=== PATIENT | female | born 1950 | race Caucasian/White ===

== ENCOUNTER 2018-08-21 19:22 | Inpatient (IN) | payer OTHER ==
[~2018-08-21] VITALS: Ht 162.6 cm; Wt 81.9 kg
--- NOTE | ~2018-08-21 | P ---
[facility] [place] [address] PROCEDURE REPORT Name: BERTHA LAURENT Room #: 354-P [facility] IN M.R.#: [id number] Admission: 08/21/18 ������������������ Attend Phys: Daniel Saldaña MD Discharge: 08/22/18 ������������������ Date of : 54 Report #: [id number] THIS REPORT FOR: //name// CC: Abhijit Saldaña MD DATE OF SERVICE: 08/22/2018 PROCEDURE: EGD with esophageal dilatation and biopsies. Patient of Dr. Saldaña. INDICATION FOR PROCEDURE: This patient has history of dysphagia with previous esophageal dilatation, the last one being 5 years ago in [place]. She has had progressively worsening dysphagia over the last several months and is here for esophageal dilatation. She has had a history of gastroesophageal reflux symptoms in the past, but denies them now. She says that she takes Tums or antacids orally to control her gastrointestinal reflux symptoms. She is here for esophageal dilatation. Informed consent for this procedure was obtained prior to the administration of any medication. The risks of the procedure, which include bleeding, perforation, infection, complications of sedation and the possibility I could miss something have been explained to the patient and she has indicated her consent by signing. Anesthesia kindly provided deep sedation for this procedure. DESCRIPTION OF PROCEDURE: The Olympus upper videoscope was introduced through the upper esophageal sphincter and advanced to approximately 20 cm from the incisors and the proximal esophagus where a tight stricture was noted. I was unable to pass the scope through the stricture, so I advanced a guidewire through the stricture and we pulled the scope out over the guidewire with the guidewire kept in place and then, I passed progressively larger Savary dilators over the guidewire including a #33, 36, 38.8, 42, 45, 48 and 51 Tajik dilators and then, I removed the dilators and the guidewire and reintroduced the Olympus upper videoscope through the upper esophageal sphincter. I was able to advance the scope all the way down to the third portion of the duodenum. Findings are noted on withdrawal of the scope. The third portion of the duodenum that I visualized, appeared normal. The second portion of the duodenum is normal. There are some mild erosions in the duodenal bulb. Pylorus, normal mucosa. Antrum, normal mucosa. Biopsies are obtained x 2 from the antrum and body of the stomach for Helicobacter pylori evaluation primarily, but also for histopathology. Body, normal mucosa. Cardia and fundus, the cardia and the fundus of the stomach are covered with blood and it is difficult to make a good call about the integrity of the mucosa, but there are no gross lesions in the [address] [address] PROCEDURE REPORT Name: BERTHA LAURENT Room #: 354-P DIS IN M.R.#: [id number] Admission: 08/21/18 ������������������ Attend Phys: Daniel Saldaña MD Discharge: 08/22/18 ������������������ Date of : 54 Report #: [id number] proximal stomach. The scope was withdrawn into the esophagus. The Z-line is difficult to find because of the blood that is in the esophagus at this time. It is possible she may have a second stricture at the bottom of her esophagus that was dilated during this test. It is difficult to say, but the distal esophageal mucosa does appear to be ulcerated, the extent of which I cannot determine entirely because of the blood soaked mucosa that extends senior living up the esophagus and into the more proximal esophagus as well. In the proximal esophagus, I see that the previously noted stricture has been completely obliterated and the esophagus was wide open at that point. A good hemostasis was noted now after the dilatation has had occurred. The scope was withdrawn. The patient was recovered in the recovery room. She tolerated the procedure well. IMPRESSION: 1. Proximal esophageal stricture dilated as above. 2. Possible distal esophageal stricture also dilated. 3. Ulcerated distal esophagus. 4. Duodenitis of the bulb, mild. 5. Biopsies taken for Helicobacter pylori evaluation from the antrum and body of the stomach. RECOMMENDATIONS: To await the biopsy results. The patient needs to take more than antacids for her acid reflux. She needs to be on proton pump inhibitors. She is at high risk of getting Maddox's esophagus with severe ulcerated esophagus that I saw today. I will ask her to take Protonix 40 mg p.o. b.i.d. She will need to have another EGD performed to evaluate esophageal healing in about 3 months and to be certain that she does not have Maddox's ectopic mucosa or esophageal carcinoma. Thank you very much once again for allowing me to participate in her care, Dr. Saldaña. ��������������������������������������������� ���������������������������������������� By: ��������������������������������������������� [id number] Zohra Montes DO /nt
[~2018-08-21 19:22] MED LIST: DIOVAN 80 MG TA80 M1 PO; METFORMIN HCL500 MG PO; PERCOCET 5-3251 EACH PO
[2018-08-21 19:30] VITALS: BP 131/96
[2018-08-21 20:42] LABS: ABSOLUTE NEUTROPHILS 7.9 thou/uL (1.4-8.2); BASOPHILS 0.7 % (0.0-2.0); EOSINOPHILS 1.9 % (0.0-3.0); HEMATOCRIT 35.8 % (37.0-47.0); HEMOGLOBIN 11.6 gm/dL (12.0-15.0); LYMPHOCYTES 22.4 % (24.0-44.0); MCH 26.9 pg (26.0-34.0); MCHC 32.4 g/dL (28.0-37.0); MONOCYTES 6.5 % (1.0-8.0); PLATELET COUNT 262 thou/uL (150-400); POLYS 68.5 % (36.0-66.0); RBC 4.31 mil/uL (4.20-5.00); RDW 15.6 % (10.5-14.5); WBC 11.5 thou/uL (4.0-11.0)
[2018-08-21 20:51] LABS: AMP/METHAMP Negative (Negative); ANION GAP 10 mmol/L (7-16); BARBITURATES Negative (Negative); BENZODIAZEPINES Negative (Negative); BUN 17 mg/dL (7-18); CALCIUM 11.3 mg/dL (8.5-10.1); CHLORIDE 104 mmol/L (98-107); CO2 27 mmol/L (21-32); COCAINE Negative (Negative); GLUCOSE 109 mg/dL (74-106); METHADONE Negative (Negative); OPIATES Negative (Negative); PCP Negative (Negative); POTASSIUM 4.1 mmol/L (3.5-5.1); SODIUM 141 mmol/L (136-145)
[2018-08-21 20:53] LABS: URINE BILIRUBIN NEGATIVE (Negative); URINE BLOOD 1+ (Negative); URINE CLARITY CLEAR; URINE COLOR YELLOW; URINE GLUCOSE-RANDOM* NEGATIVE (Negative); URINE KETONES NEGATIVE (Negative); URINE NITRITE-REFLEX NEGATIVE (Negative); URINE PROTEIN (DIPSTICK) NEGATIVE (Negative); URINE SPECIFIC GRAVITY 1.025 (1.005-1.035); URINE UROBILINOGEN 0.2 E.U./dl (0.2-1.0)
[2018-08-21 20:59] LABS: URINE LEUKOCYTES-REFLEX 1+ (Negative)
[2018-08-21 21:02] LABS: ALBUMIN 3.6 g/dL (3.4-5.0); BACTERIA-REFLEX 1-9 Few /HPF (None Seen); CASTS None Seen /LPF (None Seen); CRYSTALS None Seen /LPF (None Seen); LIPASE 159 U/L (73-393); MAGNESIUM 2.1 mg/dL (1.8-2.4); SGOT 13 U/L (15-37); SGPT 18 U/L (30-65); SQUAMOUS 0-3 Few /LPF (0-3); TOTAL BILIRUBIN 0.3 mg/dL (<0.1-1.0); TOTAL PROTEIN 7.6 g/dL (6.4-8.2); TROPONIN-I <0.06 ng/mL (<0.06); URINE RBC 3-10 Few /HPF (0-2)
[2018-08-21] MEDS ORDERED: ATORVASTATIN CA40 MG PO (22:48)
[2018-08-21] MEDS ORDERED: CARVEDILOL12.5 MG PO (22:59)
[2018-08-21 23:06] VITALS: BP 120/39
[2018-08-21 23:24] VITALS: BP 144/57
[2018-08-21] MEDS ORDERED: ASPIR 8181 MG PO (23:51)
[2018-08-21] MEDS ORDERED: HYDROCHLOROTH12.5 M1 PO (23:52)
[2018-08-22] VITALS (8 sets, daily range): BP systolic 106–148; BP diastolic 40–50
[2018-08-22 03:27] LABS: TROPONIN-I <0.06 ng/mL (<0.06)
[2018-08-22 03:38] LABS: CHOLESTEROL 147 mg/dL (<200); HDL CHOLESTEROL 44 mg/dL (>40); LDL CHOLESTEROL 89 mg/dL (<100); TC:HDL 3.3 Ratio (Not establshd); TRIGLYCERIDE 74 mg/dL (<150); VLDL 15 mg/dL (<40)
[2018-08-22 03:41] LABS: SERUM ASSESSMENT Clear
--- NOTE | 2018-08-22 03:54 | NUR ---
RECEIVED REPORT FROM ER NURSE. PT ARRIVED TO ROOM 354 AROUND 2316. ADMISSION HX AND ASSESSMENT COMPLETED CHARTED. C/O INTERMITTENT EPIGASTRIC PAIN, WHICH RADIATES TO HER BACK. PT DESCRIBED IT A CRAMPING FEELING THAT COMES AND GOES. 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 PRN FENTANYL GIVEN FOR PAIN. DENIES ANY N/V. UP AD PURA AROUND THE ROOM WITH STEADY GAIT. VSS. PROGRESSING SLOWLY TOWARD POC GOALS. WILL CONTINUE TO MONITOR FURTHER.
--- NOTE | 2018-08-22 08:00 | EKG ---
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 : 1950 Requested By: Herbert Briceno Order Number: [id number] MD: Scotty Suarez Measurements Intervals Mercer Rate: 120 P: 0 ID: 56 QRS: 44 QRSD: 139 T: -39 QT: 360 QTc: 509 Interpretive Statements Sinus tachycardia frequent and consecutive supraventricular complexes Right bundle branch block Nonspecific ST segment abnormality No previous ECG available for comparison Electronically Signed On 08-22-2018 8:00:31 CDT by Scotty Suarez [email or web address] ��������������������������������������������� <ELECTRONICALLY SIGNED> ���������������������������������������� By: Scotty Suarez MD, LOCATED WITHIN [facility] ��������������������������������������������� 08/22/18 0800 26 26 Scotty Suarez MD, [facility] /EPI
[2018-08-22 08:37] LABS: HEMATOCRIT 31.1 % (37.0-47.0); HEMOGLOBIN 10.2 gm/dL (12.0-15.0); MCH 27.2 pg (26.0-34.0); MCHC 32.8 g/dL (28.0-37.0); MCV 83.1 fL (80.0-100.0); RBC 3.75 mil/uL (4.20-5.00); RDW 15.2 % (10.5-14.5); WBC 6.9 thou/uL (4.0-11.0)
[2018-08-22 08:40] LABS: CREATININE 0.9 mg/dL (0.6-1.0); MAGNESIUM 2.1 mg/dL (1.8-2.4); POTASSIUM 4.2 mmol/L (3.5-5.1)
--- NOTE | 2018-08-22 14:58 | NUR ---
Chart reviewed and case discussed with the care team. Pt is A&ox4 and lives independently. She was working until recently. She has health insurance in place for f/u care. Pt's dtrs are involved and supportive. She is down having an EGD this afternoon. She has been up ad ryan in her room and steady on her feet. No cm interventions indicated at this time. Likely dc home tomorrow with outpt followup. Will remain available should dc needs arise.
[2018-08-22] MEDS ORDERED: PANTOPRAZOLE SO40 M1 PO (15:30)
[2018-08-22] MEDS ORDERED: CIPRO500 MG PO (15:31)
--- NOTE | 2018-08-22 18:23 | NUR ---
PT WAS EXPERINCING EPIGASTRIC INTERMITTEMNT STABBING PAIN WITH DYSPHAGIA..TAKEN TO EGD AND DILATED X 6...RETURNED TO FLOOR AND WAS DISCHARGED TO HOME @ 1810..WILL FOLLOW UP WITH GI IN 3 MONTHS
--- NOTE | 2018-08-23 17:06 | PATH ---
[facility] [address] [address] PATHOLOGY RPT PROCEDURE Name: FELICITY WRIGHT Room #: 354-P DIS IN M.R.#: [id number] ������������������ Admission: 08/21/18 ������������������ Date of : 54 Discharge: 08/22/18 Report #: [id number] Path Case #: [id number] [facility] Accession Number: [id number] . 01 Material submitted: . stomach - BX GASTRITIS R/O H PYLORI . 01 Clinical history: . Pre-OP DX: Dysphagia Post-OP DX: Duodenitis, esophageal stricture proximal and distal . 02 Diagnosis: Gastric mucosa, gastritis rule out H. pylori, endoscopic biopsy: - Mild chronic inflammation. - Negative for intestinal metaplasia or atrophy. - Negative for Helicobacter pylori (properly controlled immunohistochemical stain performed). (IUV:pit 08/23/2018) QTP/08/23/2018 . 02 Electronically signed: . Subha Russ MD, Pathologist NPI- [id number] . 01 Gross description: . Received in formalin labeled "Felicity Wright, BX gastritis, rule out H. pylori," are 2 segments of talamantes soft tissue measuring 1.0 x 0.2 x 0.2 cm in aggregate dimensions and ranging from 0.3 to 0.7 cm in maximum dimension. The specimen is submitted entirely in cassette A1. (TSD; 08/22/2018) TOB/TOB . 02 Pathologist provided ICD-10: K29.50 . 02 CPT . 680374, [id number] Specimen Comment: A courtesy copy of this report has been sent to Specimen Comment: [phone], , . Specimen Comment: Report sent to ,DR RALPH / DR HAGAN Performed at: [address], [place], [place] [id number] MD Terrell Holt MD Phone: [phone] Performed at: [address] [id number] [address] [address] PATHOLOGY RPT PROCEDURE Name: FELICITY WRIGHT Room #: 354-P DIS IN M.R.#: [id number] ������������������ Admission: 08/21/18 ������������������ Date of : 54 Discharge: 08/22/18 Report #: [id number] Path Case #: [id number] MD Subha Russ MD Phone: [phone]
== END 2018-08-22 18:17 | disposition home or self-care (01) | DRG 392 ==
LOC: ER 19:22 → EROBS 21:58 → 3W 21:58
PROVIDERS: Emergency Medicine; Nurse Practitioner Acute Care; ADMIT Internal Medicine
PROC: 0DB68ZX Excision of Stomach, Via Natural or Artificial Opening Endoscopic, Diagnostic (ICD-10-PCS; principal; 2018-08-22)
PROC: 0D758ZZ Dilation of Esophagus, Via Natural or Artificial Opening Endoscopic (ICD-10-PCS; 2018-08-22)
DX: K22.2 Esophageal obstruction (principal); N39.0 Urinary tract infection, site not specified; K22.10 Ulcer of esophagus without bleeding; R13.10 Dysphagia, unspecified; R00.0 Tachycardia, unspecified; K29.80 Duodenitis without bleeding; E78.5 Hyperlipidemia, unspecified; Z60.2 Problems related to living alone; E11.9 Type 2 diabetes mellitus without complications; I10 Essential (primary) hypertension; Z88.2 Allergy status to sulfonamides; Z88.8 Allergy status to other drugs, medicaments and biological substances; Z90.49 Acquired absence of other specified parts of digestive tract; Z98.42 Cataract extraction status, left eye; Z98.41 Cataract extraction status, right eye; Z79.82 Long term (current) use of aspirin; Z79.899 Other long term (current) drug therapy; Z86.010 Personal history of colon polyps
CPT/HCPCS: 10879; 62110; 62900; 70005